=== PATIENT | female | born 1965 | race Caucasian/White ===

== ENCOUNTER 2016-09-20 07:56 | Inpatient (IN) | payer MEDICAID ==
[~2016-09-20] VITALS: Ht 165.1 cm; Wt 72.6 kg
[2016-09-20] VITALS (13 sets, daily range): BP systolic 80–102; BP diastolic 39–58
[~2016-09-20 07:56] MED LIST: Bacitracin 50000 Units Vial ONE; Bupivacaine w/Epi 0.25% 30ml Vial INJ ONE; Surgicel 4in x 8in TOPIC ONE; ceFAZolin 1gm/50ml Premix 50 ML IV ONE
--- NOTE | 2016-09-20 08:01 | Pre-Procedure Note/Attestation ---
Pre-Procedure Note/Attestation Complete Prior to Procedure Planned Procedure: not applicable Procedure Narrative: cystocele repair vaginal sling, cystoscopy Indications for Procedure Pre-Operative Diagnosis: incontinence prolapce Attestation I attest that I discussed the nature of the procedure; its benefits; risks and complications; and alternatives (and the risks and benefits of such alternatives ), prior to the procedure, with the patient (or the patient's legal fulfillment representative). I attest that, if there was a reasonable possibility of needing a blood transfusion, the patient (or the patient's legal fulfillment representative) was given the [facility] standardized written summary, pursuant to the Marquise Tiburones Blood Safety Act ([place] Health and Safety Code # 1645, as amended). I attest that I re-evaluated the patient just prior to the surgery and that there has been no change in the patient's H&P, except as documented below: Chuy Delaney MD Sep 20, 2016 08:01
--- NOTE | 2016-09-20 08:02 | Brief Operative Note ---
Immediate Post Operative Note Operative Note Pre-op Diagnosis: incontinence prolapce Procedure: cystocele repair vaginal sling cystoscopy Post-op Diagnosis: same Post-op Diagnosis: same as pre-op Surgeon: NELLIE Pickens Anesthesia: general Specimen: none Complications: none Condition: stable Estimated Blood Loss: minimal Implant(s) used?: No Chuy Pickens MD Sep 20, 2016 08:02
[2016-09-20] MEDS ORDERED: LR 1000ml 1,000 ML IVLG SCH (08:04)
--- NOTE | 2016-09-20 08:05 | Immediate Post-Op Evaluation ---
Immediate Post-Op Evalulation Immediate Post-Op Evalulation Procedure: Cystoscopy, vaginal sling with cystocele repair Date of Evaluation: Sep 20, 2016 Time of Evaluation: 10:01 IV Fluids: 800 Blood Products: 0 Estimated Blood Loss: 25 Urinary Output: 0 Blood Pressure Systolic: 83 Blood Pressure Diastolic: 48 Pulse Rate: 58 Respiratory Rate: 16 O2 Sat by Pulse Oximetry: 100 Temperature (Fahrenheit): 97.4 Pain Score (1-10): 0 Nausea: No Vomiting: No Complications 0 Patient Status: awake, reacts, patent, none Hydration Status: adequate Drug: Ancef 1g Given Within 1 Hr of Incision: Yes Time Given: 08:50 RENALDO VERA M.D. Sep 20, 2016 08:05
--- NOTE | 2016-09-20 08:05 | Anethesia Preoperative Eval ---
Anesthesia Pre-op PMH/ROS General Date of Evaluation: Sep 20, 2016 Anesthesiologist: Drake ASA Score: ASA 3 Mallampati Score Class I : Soft palate, uvula, fauces, pillars visible Class II: Soft palate, uvula, fauces visible Class III: Soft palate, base of uvula visible Class IV: Only hard plate visible Mallampati Classification: Class II Surgeon: Rhett Diagnosis: Incontinence, cystocele Surgical Procedure: Cystoscopy, vaginal sling with cystocele repair Anesthesia History: none Family History: no anesthesia problems Allergies: Coded Allergies: No Known Allergies (Unverified , 09/19/16) Medications: see eMAR Past Medical History Cardiovascular: Reports: HTN, Denies: CAD, [place], arrhythmia, other, valve dz Pulmonary: Denies: COPD, [place], asthma, other Gastrointestinal/Genitourinary: Reports: GERD, Denies: CRI, ESRD, other Neurologic/Psychiatric: Denies: CVA, TIA, dementia, depression/anxiety, other Endocrine: Denies: DM, hypothyroidism, other, steroids HEENT: Denies: [place] (L), [place] (R), cataract (L), cataract (R), glaucoma, other Hematology/Immune: Reports: other - hepatitis C, Denies: DVT, anemia, bleeding disorder Musculoskeletal/Integumentary: Reports: OA, Denies: DDD, DJD, RA, edema, other Anesthesia Pre-op Phys. Exam Physician Exam see chart Constitutional: NAD Cardiovascular: RRR Respiratory: CTA Airway Exam Mallampati Score: Class II MO: full ROM: full Anesthesia Pre-op A/P Labs see chart Studies Pre-op Studies: EKG - sr Risk Assessment & Plan Assessment: ASA III Plan: GA Status Change Before Surgery: No Pre-Antibiotics Drug: Ancef 1g Given Within 1 Hr of Incision: Yes - 08 Time Given: 08:50 RENALDO VERA M.D. Sep 20, 2016 08:05
--- NOTE | 2016-09-20 08:06 | 48 Hour Post Anesthesia Eval ---
Post Anesthesia Evaluation Procedure: Cystoscopy, vaginal sling with cystocele repair Date of Evaluation: Sep 20, 2016 Blood Pressure Systolic: 96 0: 59 Pulse Rate: 58 Respiratory Rate: 16 O2 Sat by Pulse Oximetry: 100 Airway: patent Nausea: No Vomiting: No Pain Intensity: 0 Hydration Status: adequate Cardiopulmonary Status: at baseline Mental Status/LOC: patient returned to baseline Post-Anesthesia Complications: 0 Follow-up care needed: N/A - further care as per primary team RENALDO VERA M.D. Sep 20, 2016 08:06
[2016-09-20] MEDS ORDERED: Labetalol 5mg/ml 20ml vial IV PRN (08:15)
[2016-09-20] MEDS ORDERED: DiphenhydrAMINE 50mg/ml Inj IVP PRN (08:15)
[2016-09-20] MEDS ORDERED: HYDROmorphone 1mg/ml Carpuject SUBQ PRN (08:15)
[2016-09-20] MEDS ORDERED: Hydromorphone 0.5mg/0.5ml inj IVP PRN (08:15)
[2016-09-20] MEDS ORDERED: fentaNYL 100 mcg/2 mL IV PRN (08:15)
[2016-09-20] MEDS ORDERED: ZANTAC150 MG ORAL (08:25)
[2016-09-20] MEDS ORDERED: AMLODIPINE BESYL5 MG ORAL (08:25)
[2016-09-20] MEDS ORDERED: LOSARTAN-HCTZ1 EAC2 ORAL (08:25)
[2016-09-20] MEDS ORDERED: LR 1000ml ONE (08:30)
[2016-09-20] MEDS ORDERED: Propofol 10mg/ml 20ml IV ONE (08:30)
[2016-09-20] MEDS ORDERED: NS Irrig 1000ml ONE (08:30)
[2016-09-20] MEDS ORDERED: Midazolam 2mg/2ml Inj ONE (08:30)
[2016-09-20] MEDS ORDERED: Lidocaine 1% MPF 10mg/ml 5ml ONE (08:30)
[2016-09-20] MEDS ORDERED: fentaNYL 100 mcg/2 mL IV ONE (08:30)
[2016-09-20] MEDS ORDERED: Sterile Water Irrig 1000ml IRRIG ONE (08:58)
[2016-09-20] MEDS ORDERED: ProvayBlue 5mg/ml 10ml amp INJ ONE (09:15)
[2016-09-20] MEDS ORDERED: Betadine 4oz Bottle TOPIC ONE (09:33)
[2016-09-20] MEDS ORDERED: Norco 5mg/325mg tab ORAL PRN (10:15)
[2016-09-20] MEDS ORDERED: Ketorolac 30mg Inj IV PRN (10:15)
[2016-09-20] MEDS ORDERED: HYDROmorphone 1mg/ml Carpuject IVP PRN (10:15)
[2016-09-20] MEDS ORDERED: Ketorolac 60mg Inj IM ONE (10:30)
[2016-09-20] MEDS: D5 1/2NS w/KCl 20mEq 1,000 ML IV SCH (17:13)
[2016-09-20] MEDS: Docusate 100mg cap ORAL SCH (17:21)
[2016-09-21] MEDS: D5 1/2NS w/KCl 20mEq 1,000 ML IV SCH (02:00)
[2016-09-21 04:00] VITALS: BP 90/55
[2016-09-21 08:00] VITALS: BP 106/59
[2016-09-21 08:23] LABS: BASOPHILS % (AUTO) 0.2 % (0.0-2.0); LYMPHOCYTES % (AUTO) 11.4 % (20.0-45.0); MEAN CORPUSCULAR HEMOGLOBIN 31.1 PG (27.0-31.0); MEAN CORPUSCULAR VOLUME 92 FL (80-99); MEAN PLATELET VOLUME 7.1 FL (6.5-10.1); MONOCYTES % (AUTO) 7.6 % (1.0-10.0); NEUTROPHILS % (AUTO) 80.8 % (45.0-75.0); PLATELET COUNT 243 K/UL (150-450); RED BLOOD COUNT 3.21 M/UL (4.20-5.40); RED CELL DISTRIBUTION WIDTH 11.4 % (11.6-14.8); WHITE BLOOD COUNT 13.6 K/UL (4.8-10.8)
[2016-09-21] MEDS: Docusate 100mg cap ORAL SCH (09:00)
[2016-09-21] MEDS ORDERED: Tubing IV Secondary IV ONE (11:39)
--- NOTE | 2016-09-22 14:21 | Discharge Summary ---
Discharge Summary Hospital Course Date of Admission Sep 20, 2016 at 07:56 Date of Discharge Sep 21, 2016 at 11:40 Admitting Diagnosis HPI Babita Kendall is a 51 year old female who was admitted on Sep 20, 2016 at 07: 56 for Cystocele,Incontinent Hospital Course [id number] Discharge Discharge Disposition Patient was discharged to home Discharge Diagnoses: Betsy Gary NP Sep 22, 2016 14:21
--- NOTE | 2016-09-22 22:38 | Operative Note - Dictated ---
DATE OF OPERATION: 09/20/2016 PREOPERATIVE DIAGNOSIS: Vaginal prolapse and incontinence. POSTOPERATIVE DIAGNOSIS: Vaginal prolapse and incontinence. OPERATION: 1. Transvaginal cystocele repair. 2. Vaginal wall sling. 3. Cystoscopy. SURGEON: Chuy Delaney M.D. ANESTHESIA: General. FINDINGS: Prolapsed vaginal incontinence. INDICATION FOR SURGERY: The patient had severe vaginal prolapse and incontinence. Treatment options were explained to her in great length including all potential complications, and implantation of mesh material. She understands the nature of the procedure and signed the consent. DESCRIPTION OF PROCEDURE: She was brought to the operating room, placed in lithotomy position, and prepped and draped in standard fashion. Under general anesthesia, a midline incision was made and bladder was from the vaginal cuff pushed cephalad using a [employer] mesh, sacrospinal was placed and both sides of the mesh were inserted cephalad, sutures were placed to secure the mesh to the cervix. After the placement of the mesh, vagina was well suspended, mid urethral sling was placed as well using a mesh and the wound was copiously irrigated. The vaginal mucosa was trimmed and closed with running 2-0 Vicryl suture. Cystoscopy showed good ejection of indigo carmine and no bladder perforations. Vagina was irrigated and packed. Sponge count and instrument count was correct. The patient was transferred to recovery in stable condition. No evidence of complications. Chuy Delaney M.D. DR: Jessica JOB#: [id number] CC:
--- NOTE | 2016-09-23 05:18 | Discharge Summary 2 SIG ---
DATE OF ADMISSION: 09/20/2016 DATE OF DISCHARGE: 09/21/2016 BRIEF HOSPITAL COURSE: The patient is a 51-year-old female, who had complaints of incontinence and discomfort in the pelvic area. She was admitted on 09/20/2016 and underwent cystocele repair and vaginal sling cystoscopy by Dr. Chuy Delaney. Postoperatively, she was given IV hydration and pain management. She was given incentive spirometry and advised bedrest. The following day, vitals were stable and the patient was discharged home to follow up in a week. FINAL DIAGNOSIS: Incontinence with vaginal prolapse, status post cystocele repair and vaginal sling cystoscopy. Chuy Delaney M.D. I have been assigned to dictate discharge summary on this account and I was not involved in the patient's management. Betsy Gary N.P. DR: MELINA JOB#: [id number] CC: NAMAN
== END 2016-09-21 11:40 | disposition home or self-care (01) | DRG 514 ==
LOC: SDSOVERFLO 07:56 → 3E 11:45
PROC: 0USG0ZZ Reposition Vagina, Open Approach (ICD-10-PCS; 2016-09-20)
PROC: 0JUC0JZ Supplement of Pelvic Region Subcutaneous Tissue and Fascia with Synthetic Substitute, Open Approach (ICD-10-PCS; principal; 2016-09-20 09:30)
DX: N81.10 Cystocele, unspecified (principal); I10 Essential (primary) hypertension; R32 Unspecified urinary incontinence; J45.909 Unspecified asthma, uncomplicated; K21.9 Gastro-esophageal reflux disease without esophagitis
CPT/HCPCS: 36415; 85025; 94003; 94150; A4246; J2250; J2405